=== PATIENT | male | born 1960 | race Caucasian/White ===

== ENCOUNTER 2018-02-08 10:15 | Inpatient (IN) | payer OTHER ==
--- NOTE | 2018-02-01 20:37 | HP ---
AMENDED REPORT NOW INCLUDES DESIGNATED COSIGNER PREOPERATIVE HISTORY AND PHYSICAL: DATE OF ADMISSION/SURGERY: 02/08/18 ATTENDING PHYSICIAN/SURGEON: Clarita Argueta MD.* (DICTATED BY VIANEY DELA CRUZ) PROCEDURE: Left total hip arthroplasty. HISTORY OF PRESENT ILLNESS: Mr. Loomis is a 57-year-old male with complaints of left hip pain. He has failed conservative management and has elected to proceed with left total hip arthroplasty, which is scheduled for 02/08/18. PAST MEDICAL HISTORY: Significant for gout in the right great toe and osteoarthritis. PAST SURGICAL HISTORY: L5-S1 laminectomy in 1991. CURRENT MEDICATIONS: 1. Tylenol 500 mg once to twice daily as needed. 2. Tramadol 50 mg q.6 hours p.r.n. pain. ALLERGIES: No known drug allergies. FAMILY HISTORY: Negative. 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 He occasionally smokes one cigar per month. REVIEW OF SYSTEMS: The 14 systems reviewed with the patient today. Positive for left hip pain and seasonal allergies, otherwise reports negative review of systems. PHYSICAL EXAMINATION GENERAL: The patient is pleasant and cooperative. Alert and oriented x3, in no acute distress. Pleasant mood and appropriate affect. VITAL SIGNS: Height 68 inches, weight 165. BP 118/77, respirations 16. BMI 25.1. HEENT: Pupils equal, round, reactive to light. NECK: Supple, nontender. LUNGS: Clear to auscultation bilaterally. HEART: Regular rate and rhythm. No murmurs. ABDOMEN: Nontender and soft. Normoactive bowel sounds x4 quadrants. MUSCULOSKELETAL: The left hip shows no open lesions or wounds. Flexion to 90 degrees with groin pain. No internal rotation. External rotation 20 degrees with groin pain. His calf is soft and nontender. His neurovascular status is intact distally with full sensation. Active dorsiflexion and plantarflexion of the left ankle. ASSESSMENT AND PLAN: Mr. Loomis is a 57-year-old male with end-stage osteoarthritis of the left hip. He has failed conservative management and elected to proceed with left total hip arthroplasty, which is scheduled for 03/[address] Argueta discussed the risks and benefits of the surgery today at the visit and all of his questions were answered. He will follow up with Dr. Argueta roughly 2 weeks after surgery. VIANEY DELA CRUZ [id number]/[facility] #: [id number] KAYLIE
[~2018-02-08 10:15] MED LIST: Acetaminophen TAB* 325 MG PO ONE; Buffered Lidocaine 0.9% SYRIN* 5 ML/SYR SYRINGE INTRADERM ONE; Famotidine IV* 10 MG/ML 2 ML (20 mg) IV ONE; Gabapentin CAP(*) 300 MG PO ONE; celeCOXIB CAP* 200 MG PO ONE
--- OUTSIDE RECORDS SUMMARY | 2018-02-08 10:19 | XMS REPORT | Continuity of Care Document ---
:1960 External Reference #:[id number] Author Name Randal Tilley M.D. Address [address] [place] [address] Care Team Providers Name Role Phone Randal Tilley M.D. Care Team Information Community Organization Director Unavailable Payers Type Date Identification Numbers Payment Provider Subscriber Policy Number: [id number] [employer] Wilfred Loomis SR Group [place] [facility] [place] [address] PayID: [place] [address] Advance Directives Description No Information Available Problems Date Description Provider Status Onset: 02/12/2017 Low back pain Randal Tilley M.D. Active Onset: 02/12/2017 Sciatica Randal Tilley M.D. Active Family History Date Family Member(s) Problem(s) Comments Father Prostate Cancer Father due to Natural Causes () Mother due to Natural Causes () Children 3 Siblings 1 Grandchildren 5 Social History Type Date Description Comments Sex Unknown Marital Status Legal Status: Pets None Work Status Full-Time Employment [employer]. ETOH Use Rarely consumes alcohol Recreational Drug Use Never Used Drugs Tobacco Use Start: Unknown Patient has never smoked Smoking Status Reviewed: 01/28/18 Patient has never smoked Exercise Type/Frequency Exercises daily Allergies, Adverse Reactions, Alerts Description No Known Drug Allergies Medications Medication Date Status Form Strength Qnty SIG Indications Ordering Provider Allopurinol Active Tablets 100mg 90tabs 1 by mouth M10.9 Randal 018 every day Radha thomas M.D. Celecoxib Active Capsules 200mg 30caps 1 by mouth M54.5 Randal 017 every day Radha thomas M.D. Tramadol HCL Active Tablets 50mg 60tabs take 1 Randal 000 tablet by Garcia mouth sJewel every 6 hours with a 500 mg tylenol if needed for pain Colchicine Hx Capsules 0.6mg 60caps take 2 M10.9 Randal 018 - now, 1 an Garcia hour later Jewel thomas 018 then 1 twice a day Indomethacin Hx Capsules 50mg 30caps 1 by mouth M10.9 Randal 018 - three Garcia times a Jewel thomas 018 day Medrol Hx TBPK 4mg 21unit use as M25.571 Randal 017 - s directed Garcia Jewel thomas 018 No Active Hx Unknown Medications 017 - 017 Immunizations Description No Information Available Vital Signs Date Vital Result Comment 01/28/2018 4:07pm Weight 165.00 lb BP Systolic 128 mmHg BP Diastolic 72 mmHg Height 67 inches 5'7" Heart Rate 60 /min O2 % BldC Oximetry 98 % room air Respiratory Rate 16 /min BMI (Body Mass Index) 25.8 kg/m2 12/25/2017 8:16am BP Systolic 138 mmHg BP Diastolic 90 mmHg 09/24/2017 3:59pm Weight 160.00 lb BP Systolic 118 mmHg BP Diastolic 82 mmHg 09/10/2017 4:24pm Weight 165.00 lb BP Systolic 122 mmHg BP Diastolic 78 mmHg 03/12/2017 4:57pm Weight 171.50 lb BP Systolic 94 mmHg BP Diastolic 74 mmHg Height 68.25 inches 5'8.25" Heart Rate 68 /min Respiratory Rate 16 /min BMI (Body Mass Index) 25.9 kg/m2 02/12/2017 10:07am Weight 178.00 lb BP Systolic 118 mmHg BP Diastolic 90 mmHg 01/13/2017 8:55am Weight 176.00 lb BP Systolic 132 mmHg BP Diastolic 76 mmHg Height 67 inches 5'7" Heart Rate 60 /min Body Temperature 97.9 F Respiratory Rate 14 /min BMI (Body Mass Index) 27.6 kg/m2 Results Test Date Facility Test Result H/L Range Note Laboratory test 01/04/2018 [facility] Uric Acid 7.5 mg/dL High 3.5- 7.2 1 finding [phone] Sedimentation Rate 3 mm/hr 0-20 2 CBS W/Automated Diff 01/04/2018 [facility] White Blood 5.4 K/uL 3.4-10.5 [phone] Count Red Blood Count 4.67 M/uL 4.20-5.80 Hemoglobin 14.0 gm/dL 12.8-17.0 Hematocrit 41.4 % 38.0-48.0 Mean Cell Volume 88.7 fl 80.0-96.0 Mean Corpuscular HGB 30.0 pg 27.0-33.0 Mean Corpuscular HGB Conc 33.8 g/dL 31.7-36.0 Platelet Count 250 K/uL 155-360 Red Cell Distri Width SD 44.8 fl 36-51 Red Cell Distri Width %CV 14.1 % 11.6-15.8 Mean Platelet Volume 9.9 fL 6.6-10.6 Neut% 58.7 % 33.0-73.0 Lymph % 29.0 % 20.0-42.0 Benson % 11.4 % High 0.0-10.0 Eo% 0.7 % 0.0-6.6 Bas% 0.2 % 0.0-1.1 Neut# 3.18 K/uL 1.8-7.0 Lymph # 1.57 K/uL 1.0-4.0 Benson # 0.62 K/uL 0.0-0.8 Eos # 0.04 K/uL 0.0-0.5 Baso # 0.01 K/uL 0.0-0.1 Laboratory test 05/18/2017 [facility] Uric Acid 7.3 mg/dL High 3.5- 7.2 3 finding [phone] Sedimentation Rate 4 mm/hr 0-20 4 CBS W/Automated Diff 05/18/2017 [facility] White Blood 5.9 K/uL 3.4-10.5 [phone] Count Red Blood Count 4.61 M/uL 4.20-5.80 Hemoglobin 14.2 gm/dL 12.8-17.0 Hematocrit 41.3 % 38.0-48.0 Mean Cell Volume 89.6 fl 80.0-96.0 Mean Corpuscular HGB 30.8 pg 27.0-33.0 Mean Corpuscular HGB Conc 34.4 g/dL 31.7-36.0 Platelet Count 275 K/uL 155-360 Red Cell Distri Width SD 43.4 fl 36-51 Red Cell Distri Width %CV 13.5 % 11.6-15.8 Mean Platelet Volume 9.5 fL 6.6-10.6 Neut% 55.2 % 33.0-73.0 Lymph % 34.6 % 20.0-42.0 Benson % 9.4 % 0.0-10.0 Eo% 0.5 % 0.0-6.6 Bas% 0.3 % 0.0-1.1 Neut# 3.24 K/uL 1.8-7.0 Lymph # 2.03 K/uL 1.0-4.0 Benson # 0.55 K/uL 0.0-0.8 Eos # 0.03 K/uL 0.0-0.5 Baso # 0.02 K/uL 0.0-0.1 Laboratory test 05/18/2017 [facility] Prostate Specific 1.36 < 4.0 5 finding [phone] Antigen ng/mL Glycohemoglobin A1c 05/18/2017 [facility] Glycohemoglobin 5.9 % 4.2-6. 6 [phone] (A1c) 3 eAG 123 mg/dL LDL Cholesterol Profile 05/18/2017 [facility] Cholesterol 159 mg/dL <200 7 [phone] Triglycerides 61 mg/dL <150 8 HDL Cholesterol 64 mg/dL >40 9 LDL-Cholesterol 83 mg/dL < 100 10 Basic Metabolic Panel 05/18/2017 [facility] Glucose 88 mg/dL 74- 106 [phone] BUN 21 mg/dL High 7-18 Creatinine 1.1 mg/dL 0.6-1.3 Glom Filtration Rate, Estimate >60 mL/min >60 If >60 mL/min >60 11 BUN/Creat 19.0 ratio Sodium 138 mmol/L 136-145 Potassium 4.5 mmol/L 3.5-5.1 Chloride 104 mmol/L 98-107 Carbon Dioxide 30 mmol/L 21-32 Anion Gap 4 mEq/L Low 8-16 Calcium 9.2 mg/dL 8.5-10.1 1 M10.9 2 Method: Sediplast Modified Westergren 3 M25.571, Z12.5, Z00.01 4 Method: Sediplast Modified Westergren 5 THIS ASSAY IS NOT INTENDED A CANCER SCREENING TEST The concentration of PSA in a given specimen, determined with assays from different manufacturers, can vary due to differences in assay methods and reagent specificity. Values obtained from different assay methods cannot be used interchangeably. Method: Aito BVta Chemiluminescent immunoassay. 6 Elevated levels of HbA1c suggest the need for more aggressive treatment of glycemia. The [place] Diabetes Association recommends that a primary goal of therapy should be a HbA1c of <7% and that physicians should re-evaluate the treatment regimen in patients with HbA1c values consistently >8%. 7 Reference Guidelines*: Desirable: ........... < 200 mg/dL Borderline High: ..... 200-239 mg/dL High: ................ >=240 mg/dL * The National Cholesterol Education Program (NCEP) 8 Reference Guidelines*: Normal: ............. < 150 mg/dL Borderline High: .... 150-199 mg/dL High: ............... 200-499 mg/dL Very High: .......... > 500 mg/dL * Source: National Cholesterol Education Program (NCEP) 9 Reference Guidelines*: Low HDL: ..... < 40 mg/dL Normal: ..... 40-60 mg/dL Desirable: ... > 60 mg/dL *The National Cholesterol Education Program(NCEP) 10 Reference Guidelines*: Optimal:........... <100 mg/dL Near Optimal....... 100-129 mg/dL Borderline High.... 130-159 mg/dL High............... 160-189 mg/dL Very High.......... >=190 mg/dL * Source: National Cholesterol Education Program (NCEP) 11 Note: Persistent reduction for 3 months or more in an eGFR <60 mL/min/1.73 m2 defines CKD. Patients with eGFR values >/=60 mL/min/1.73 m2 may also have CKD if evidence of persistent proteinuria is present. The original MDRD equation for estimated GFR is not valid for patients less than 18 years of age. Additional information may be found at www.kdoqi.org. Procedures Date Code Description Status 01/28/2018 99621 EKG Completed Encounters Type Date Location Provider Dx Diagnosis Office Visit 01/28/2018 Main Office Randal Tilley M25.552 Pain in left hip 3:45p Jewel M10.9 Gout, unspecified M54.5 Low back pain M25.562 Pain in left knee Z01.818 Encounter for other preprocedural examination Office Visit 12/25/2017 8:00a Main Office Randal M10.9 Gout, unspecified Jewel Tilley Office Visit 09/24/2017 3:45p Main Office Randal M25.512 Pain in left Tilley, M.DBony shoulder M25.552 Pain in left hip Office Visit 09/10/2017 4:30p Main Office Randal Tilley M25.512 Pain in left M.D. shoulder Office Visit 03/12/2017 4:30p Main Office Randal Tilley Z00.01 Encounter for M.D. general adult medical exam w abnormal findings Z12.5 Encounter for screening for malignant neoplasm of prostate Z12.12 Encounter for screening for malignant neoplasm of rectum M54.5 Low back pain M54.32 Sciatica, left side M25.571 Pain in right ankle and joints of right foot Office Visit 01/13/2017 9:00a Main Office Randal Tilley M54.5 Low back pain M.DBony M54.32 Sciatica, left side Plan of Treatment Future Appointment(s):03/15/2018 3:00 pm - Randal Tilley M.D. at Main Xbrjun0101/28/2018 - Randal Tilley M.D.M25.552 Pain in left hipM10.9 Gout, unspecifiedNew Medication:Allopurinol 100 mg - 1 by mouth every dayNew Labs: Uric Acid Ser/Plas Mass/Vol, Ordered: 11/01/18M54.5 Low back painM25.562 Pain in left kneeZ01.818 Encounter for other preprocedural examinationNew Labs:PT And PTT, Ordered: 01/28/18CBC No Diff, Ordered: 01/28/18CMP, Ordered: Ua And Culture, Ordered: 01/28/18
--- OUTSIDE RECORDS SUMMARY | 2018-02-08 10:19 | XMS REPORT | Continuity of Care Document ---
:1960 External Reference #:[id number] Author Name Randal Tilley M.D. Address [address] [place] [address] Care Team Providers Name Role Phone Randal Tilley M.D. 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 ETOH Use Rarely consumes alcohol Recreational Drug Use Never Used Drugs Tobacco Use Start: Unknown Patient has never smoked Smoking Status Reviewed: 01/13/18 Patient has never smoked Exercise Type/Frequency Exercises daily Allergies, Adverse Reactions, Alerts Description No Known Drug Allergies Medications Medication Date Status Form Strength Qnty SIG Indications Ordering Provider Colchicine Active Capsules 0.6mg 60caps take 2 M10.9 Randal 018 now, 1 an Garcia hour later s, M.D. then 1 twice a day Indomethacin Active Capsules 50mg 30caps 1 by mouth M10.9 Randal 018 three Garcia times a s, M.D. day Celecoxib Active Capsules 200mg 30caps 1 by mouth M54.5 Randal 017 every day Radha thomas M.D. Tramadol HCL Active Tablets 50mg take 1 Unknown 000 tablet by mouth every 6 hours if needed for pain maximum daily dose of 4 Medrol Hx TBPK 4mg 21unit use as M25.571 Randal 017 - s directed Radha Jewel thomas 018 No Active Hx Unknown Medications 017 - 017 Immunizations Description No Information Available Vital Signs Date Vital Result Comment 12/25/2017 8:16am BP Systolic 138 mmHg BP [...] Result H/L Range Note Laboratory test 01/04/2018 [facility] Uric Acid 7.5 mg/dL High 3.5- 7.2 1 finding [phone] Sedimentation Rate 3 mm/hr 0-20 2 CBS W/Automated Diff 01/04/2018 [facility] White Blood 5.4 K/uL 3.4-10.5 [phone] Count Red Blood Count 4.67 M/uL 4.20-5.80 [...] % 33.0-73.0 Lymph % 29.0 % 20.0-42.0 [place] % 11.4 % High 0.0-10.0 Eo% 0.7 % 0.0-6.6 Bas% 0.2 % 0.0-1.1 Neut# 3.18 K/uL 1.8-7.0 Lymph # 1.57 K/uL 1.0-4.0 [place] # 0.62 K/uL 0.0-0.8 Eos # 0.04 K/uL 0.0-0.5 Baso # 0.01 K/uL 0.0-0.1 Laboratory test 05/18/2017 [facility] Uric Acid 7.3 mg/dL High 3.5- 7.2 3 finding [phone] Sedimentation Rate 4 mm/hr 0-20 4 CBS W/Automated Diff 05/18/2017 [facility] White Blood 5.9 K/uL 3.4-10.5 [phone] Count Red Blood Count 4.61 M/uL 4.20-5.80 [...] % 33.0-73.0 Lymph % 34.6 % 20.0-42.0 [place] % 9.4 % 0.0-10.0 Eo% 0.5 % 0.0-6.6 Bas% 0.3 % 0.0-1.1 Neut# 3.24 K/uL 1.8-7.0 Lymph # 2.03 K/uL 1.0-4.0 [place] # 0.55 K/uL 0.0-0.8 Eos # 0.03 K/uL 0.0-0.5 Baso # 0.02 K/uL 0.0-0.1 Laboratory test 05/18/2017 [facility] Prostate Specific 1.36 < 4.0 5 finding [phone] Antigen ng/mL Glycohemoglobin A1c 05/18/2017 [facility] Glycohemoglobin 5.9 % 4.2-6. 6 [phone] (A1c) 3 eAG 123 mg/dL LDL Cholesterol Profile 05/18/2017 [facility] Cholesterol 159 mg/dL <200 7 [phone] Triglycerides 61 mg/dL <150 8 HDL Cholesterol 64 mg/dL >40 9 LDL-Cholesterol 83 mg/dL < 100 10 Basic Metabolic Panel 05/18/2017 [facility] Glucose 88 mg/dL 74- 106 [phone] BUN 21 mg/dL High 7-18 Creatinine 1.1 [...] assay methods cannot be used interchangeably. Method: Bazaarvoiceta Chemiluminescent immunoassay. 6 Elevated levels of HbA1c suggest the need for more aggressive treatment of glycemia. The [place] Diabetes Association recommends that a primary goal [...] information may be found at www.kdoqi.org. Procedures Description No Information Available Encounters Type Date Location Provider Dx Diagnosis Office Visit 12/25/2017 Main Office Randal Lobo.9 Gout, unspecified 8:00a Jewel Tilley Office Visit 09/24/2017 Main Office Randal M25.512 Pain in left 3:45p Jewel Tilley shoulder M25.552 Pain in left hip Office Visit 09/10/2017 4:30p Main Office Randal Tilley M25.512 Pain in left M.DBony shoulder Office Visit 03/12/2017 4:30p Main Office Randal Tilley Z00.01 Encounter for M.DBony general adult medical exam w abnormal findings Z12.5 Encounter for screening for malignant neoplasm of prostate Z12.12 Encounter for screening for malignant neoplasm of rectum M54.5 Low back pain M54.32 Sciatica, left side M25.571 Pain in right ankle and joints of right foot Office Visit 01/13/2017 9:00a Main Office Randal Tilley M54.5 Low back pain KatiuskaDBony M54.32 Sciatica, left side Plan of Treatment Future Appointment(s):01/28/2018 3:45 pm - Randal Tilley M.D. at Main Hqygtj9503/15/2018 3:00 pm - Randal Tilley M.D. at Main Jhzjtk3112/25/2017 - Randal Tilley M.D.M10.9 Gout, unspecifiedNew Medication:Colchicine 0.6 mg - take 2 now, 1 an hour later then 1 twice a dayIndomethacin 50 mg - 1 by mouth three times a dayAllRecommendations:no celebrex while taking indocin take indocin 3 times a day until the pain subsides take colchicine daily ok to use Ultram
--- OUTSIDE RECORDS SUMMARY | 2018-02-08 10:19 | XMS REPORT ---
:1960 External Reference #:[id number] Author Organization [employer] Address [address] [place] [id number] Phone [phone] Care Team Providers Name Role Phone Randal Tilley MD Primary Care Physician Unavailable Payers Type Date Identification Numbers Payment Provider Subscriber Commercial Policy Number: [id number] [employer] Wilfred Loomis [employer] PayID: [id number] [address] [place] [address] Problems Date Description Provider Status Onset: 12/18/2017 Localized, primary osteoarthritis of the Clarita Jewel Argueta Active pelvic region and thigh Social History Type Date Description Comments Lives With 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 ETOH Use Occasionally consumes alcohol Smoking Patient is a current smoker, smokes some days Exercise Type/Frequency Exercises regularly Allergies, Adverse Reactions, Alerts Date Description Reaction Status Severity Comments 12/18/2017 NKDA active Medications Medication Date Status Form Strength Qnty SIG Indications Ordering Provider Tramadol HCL 12/19/19 Active Tablets 50mg 60tabs 1 tablet M25.552 Clarita 18 by mouth Jewel Argueta every 6 hours as needed pain Tylenol Active Capsules 500mg Unknown 00 Celecoxib Hx Capsules 200mg Unknown - 02/01/20 18 Vital Signs Date Vital Result Comment 02/01/2018 Height 68 inches 5'8" Weight 166.00 lb Heart Rate 60 /min BP Systolic 134 mmHg BP Diastolic 84 mmHg BMI (Body Mass Index) 25.2 kg/m2 12/18/2017 Height 68 inches 5'8" Weight 165.00 lb BP Systolic 118 mmHg BP Diastolic 77 mmHg Respiratory Rate 16 /min Pain Level 7 BMI (Body Mass Index) 25.1 kg/m2 Results Description No Information Procedures Description No Information Encounters Type Date Location Provider CPT E/M Dx Office Visit 12/18/2017 [facility] Clarita Argueta M.D. [address] M25.552 10:[facility] [place] M16.12 Plan of Care Future Appointment(s):02/08/2018 1:30 pm - VIANEY [facility] at [facility]02/08/2018 1:30 pm - Clarita [facility]gu[facility]2018 - Clarita Argueta M.D.M16.12 Unilateral primary osteoarthritis, left hipFollow up:Follow up: to OR: 10-14 days post opM25.552 Pain in left hipNew Xrays:Hip Left 2 Views And Pelvis [id number] - [id number] Left 2 Views And Pelvis [id number] - [id number]
[2018-02-08] MEDS ORDERED: Famotidine IV* 10 MG/ML 2 ML (20 mg) ONE (11:17)
[2018-02-08] MEDS ORDERED: Midazolam* 1 MG/ML 5 ML VIAL (5 MG) ONE (11:17)
[2018-02-08] MEDS ORDERED: Propofol* 10 MG/ML 20 ML BTL IV PUSH ONE (11:17)
[2018-02-08] MEDS ORDERED: fentaNYL* 50 MCG/ML 5 ML VIAL (250 MCG VIAL) ONE (11:17)
[2018-02-08] MEDS ORDERED: Gabapentin CAP(*) 300 MG ONE (11:17)
[2018-02-08] MEDS ORDERED: Ondansetron INJ* 2 MG/ML VIAL ONE (11:17)
[2018-02-08] MEDS ORDERED: Lidocaine 2% PF * 5 ML VIAL ONE (11:17)
[2018-02-08] MEDS ORDERED: KETAMINE HCL* 50 MG/ML 10 ML VIAL ONE (11:17)
[2018-02-08] MEDS ORDERED: Dexamethasone IV* 4 MG/ML 1 ML (4 MG) ONE (11:17)
[2018-02-08] MEDS ORDERED: celeCOXIB CAP* 100 MG ONE (11:18)
[2018-02-08] MEDS ORDERED: Acetaminophen TAB* 325 MG ONE (11:18)
[2018-02-08] MEDS ORDERED: ceFAZolin 2 GM in NS PREMIX(*) 2 GM/100 ML BAG IVPB ONE (11:52)
[2018-02-08] MEDS ORDERED: Cisatracurium* 2 MG/ML MDV 5 ML ONE (12:41)
[2018-02-08] MEDS ORDERED: Naloxone* 0.4 MG/ML 1 ML VIAL IV PRN (14:29)
[2018-02-08] MEDS ORDERED: Ondansetron INJ* 2 MG/ML VIAL IV PRN ×2 (14:29→16:01)
[2018-02-08] MEDS ORDERED: Bupivacaine 0.5% SDV PF* 30ML VIAL ONE (15:15)
[2018-02-08] MEDS ORDERED: HYDROmorphone INJ1* 1 MG/ML SYRINGE ONE ×2 (15:15→16:23)
[2018-02-08] MEDS ORDERED: Cyclobenzaprine TAB* 10 MG PO PRN (16:01)
[2018-02-08] MEDS ORDERED: diPHENhydraMINE PO* 25 MG PO PRN (16:01)
[2018-02-08] MEDS ORDERED: oxyCODONE TAB* 5 MG TAB PO PRN (16:01)
[2018-02-08] MEDS ORDERED: Bisacodyl SUPP* 10 MG SUPP PR PRN (16:01)
[2018-02-08] MEDS ORDERED: Magnesium Hydroxide LIQ* 30 ML UDC PO PRN (16:01)
[2018-02-08] MEDS ORDERED: traMADol TAB* 50 MG PO PRN (16:01)
[2018-02-08] MEDS ORDERED: Morphine VIAL* 4 MG/ML VIAL (1 ml vial) IV PRN (16:01)
[2018-02-08] MEDS ORDERED: oxyCODONE/Acetamin 5/325 MG* TAB PO PRN (16:01)
[2018-02-08] MEDS ORDERED: Polyethylene Glycol 3350* 17 GM PACKET PO PRN (16:01)
[2018-02-08] MEDS ORDERED: diPHENhydraMINE IV* 50 MG/ML 1 ml VIAL (BENADRYL) IV PRN (16:01)
[2018-02-08] MEDS ORDERED: fentaNYL* 50 MCG/ML 2 ML VIAL (100 MCG VIAL) ONE (16:23)
[2018-02-08] MEDS: fentaNYL* 50 MCG/ML 2 ML VIAL (100 MCG VIAL) IV PRN ×2 (16:25→17:20)
[2018-02-08] MEDS: HYDROmorphone INJ1* 1 MG/ML SYRINGE IV PRN ×2 (16:33→18:52)
[2018-02-08] MEDS ORDERED: oxyCODONE/Acetamin 5/325 MG* TAB ONE (17:21)
[2018-02-08] MEDS: oxyCODONE/Acetamin 5/325 MG* TAB PO PRN (17:22)
[2018-02-08] MEDS: Acetaminophen TAB* 325 MG PO SCH (20:05)
[2018-02-08] MEDS: ceFAZolin 1 GM in Dextrose (*) 1 GM/50 ML BAG IVPB SCH (23:15)
[2018-02-08] MEDS ORDERED: Warfarin TAB(*) 6 MG PO ONE (23:15)
[2018-02-08] MEDS: Docusate CAP* 100 MG PO SCH (23:17)
[2018-02-08] MEDS: Magnesium Hydroxide LIQ* 30 ML UDC PO SCH (23:19)
[2018-02-09] MEDS: Acetaminophen TAB* 325 MG PO SCH ×2 (00:29→09:23)
[2018-02-09] MEDS: ceFAZolin 1 GM in Dextrose (*) 1 GM/50 ML BAG IVPB SCH ×2 (05:38→14:19)
[2018-02-09 06:13] LABS: Hematocrit 37 % (42-52); Hemoglobin 12.3 g/dl (14.0-18.0); Mean Platelet Volume 7.5 fL (7.4-10.4); Platelet Count 251 10^3/ul (150-450)
[2018-02-09] MEDS: oxyCODONE/Acetamin 5/325 MG* TAB PO PRN ×2 (06:19→15:10)
[2018-02-09 06:22] LABS: INR 0.94 (0.77-1.02)
[2018-02-09 06:28] LABS: EGFR Non-African American 96.5 (>60)
[2018-02-09] MEDS ORDERED: Enoxaparin(*) 30 MG/0.3 ML SYR SUBCUT SCH (09:00)
[2018-02-09] MEDS: Docusate CAP* 100 MG PO SCH (09:23)
[2018-02-09] MEDS: Magnesium Hydroxide LIQ* 30 ML UDC PO SCH (09:42)
--- NOTE | 2018-02-09 11:31 | OP ---
OPERATIVE NOTE: DATE OF OPERATION: 02/08/18 DATE OF : 58 ATTENDING SURGEON: Clarita Argueta MD. STONEMASON HELPER: VIANEY Roblero. Ms. Samson did help throughout the procedure with preparation of the leg, wound retraction, manipulat ion of the hip, and wound closure. ANESTHESIOLOGIST: Dr. Thorpe ANESTHESIA: General. PRE-OP DIAGNOSIS: Severe endstage degenerative osteoarthritis of the left hip joint. POST-OP DIAGNOSIS: Severe endstage degenerative osteoarthritis of the left hip joint. OPERATIVE PROCEDURE: Left total hip arthroplasty. COMPLICATIONS: None. ESTIMATED BLOOD LOSS: 200 cc. SPECIMENS: Femoral head and acetabular reaming sent to Pathology. HARDWARE USED: This is uncemented [employer] total hip arthroplasty hardware. For the cup, a Tritanium cluster hole shell 56E, a single 20-mm screw. For the linear a Trident X3 10-degree liner 36E. For the stem, an Accolade II size 5 with a 127- degree neck. For the head a Biolox delta ceramic V40 fe moral head 36 -2.5. BRIEF HISTORY/INDICATION: Mr. Loomis is a 57-year-old gentleman with years of increasingly severe le ft hip pain. He failed conservative treatment with the antiinflammatories, physical therapy, and int raarticular injections. Radiographs showed endstage arthritis. Due to continued pain and decreased quality of life, he elected to undergo left total hip arthroplasty. Informed consent was obtained fr om the patient. He understood the risks of surgery included, but were not limited to, bleeding, infe ction, damage to nearby structures, continued pain, need for further surgery, intraoperative fracture , nerve palsy, hardware failure or loosening, dislocation, leg length discrepancy, stroke, heart jenni ck, blood clot, and . He wished to proceed. INTRAOPERATIVE FINDINGS: Intraoperatively, the patient was noted to have endstage arthritis with ext ensive osteophyte formation and complete loss of cartilage along the femoral head and acetabulum. DESCRIPTION OF PROCEDURE: Mr. Loomis was identified in the preanesthesia unit. His left lower extrem ity was marked as the correct operative side. Informed consent was signed and placed in the chart. The patient was taken to the operating room and placed under general anesthesia. A Zamarripa catheter wa s placed. The patient was placed in the right lateral decubitus position on the PEG board. All bony prominences were well padded. Left lower extremity was prepped and draped in the usual sterile [facility] ion. Preop time-out was made to correctly identify the patient's side and site. Appropriate periope rative antibiotics were given within 1 hour of incision. A 10-cm posterior hip incision was made with a 10 blade and carried down to the lateral fascial layer . Lateral fascial layer was incised in line with the skin incision. Charnley retractor was placed. The piriformis and the posterior aspect of the hip joint was well visualized. The piriformis and co njoint tendons were elevated off the posterolateral femur using electrocautery and tagged with #5 Eth ibond. Electrocautery was then used to make a posterolateral capsular flap and this was also tagged with #5 Ethibond. The hip was carefully dislocated. Lesser troch to the center of the femoral head measured 58 mm. The oscillating saw was used to make the appropriate femoral neck cut. The femoral head was removed. The femur was carefully retracted anteriorly. After appropriate placement of retractors, the acetabu lum was well visualized. Long-handled knife was used to sharply remove any remaining labrum from the acetabular rim. The acetabulum sequentially reamed up to a size 55. The 55 reamer had bleeding sub chondral bone bed and good fit. A 55 trial was placed and had excellent fit and stability. Final imp lant chosen was a Tritanium cluster hole shell 56E. This was impacted into the acetabulum without di fficulty. The cup was stable with appropriate anteversion and abduction angle. A single 20 mm screw was placed in the superior posterior quadrant for extra stability. Liner chosen was a Trident X3 10 -degree polyethylene liner. This was impacted into the acetabulum. Stability of the liner was check ed and rechecked and noted to be stable. Next, attention was turned to preparation of the femur canal. A canal finder was used to enter the f emoral canal. This femoral canal was sequentially broached up to a size 5. Size 5 broach had excell ent stability with appropriate anteversion. A 127 trial with a 36 +0 head trial was placed. Lesser t roch to the center of the femoral head measured 62 mm, therefore, a -2.5 head was chosen. Lesser tro ch to the center of the femoral head measured 59 mm. The hip was reduced and taken through a range o f motion. The hip was stable in all positions. There was good soft tissue tension and appropriate l eg lengths. The hip was carefully dislocated. All trials were removed. Final implant chosen was an Accolade II size 5 with a 127 degree neck. This was impacted into the femoral canal without difficulty. The yovani m was stable with appropriate anteversion. A Biolox delta ceramic V40 femoral head 36 -2.5 was chose n as the final implant. This was impacted on to the femoral neck. Final lesser troch to the center of the femoral head measurement was 58 mm. The hip was reduced and taken through a range of motion. The hip was stable in all positions. There was good soft tissue tension and appropriate leg lengths . The wound was copiously irrigated with sterile saline. Previously tagged capsule and tendons were reapproximated to the posterolateral femur through 2 trochanteric drill holes. The wound was copiou sly irrigated with sterile saline once again. The lateral fascial layer was closed using interrupted #1 Vicryls. The rest of the incision was closed in a layered fashion using 0 and 2-0 Vicryls. Skin was closed using running 3-0 Monocryl and Dermabond. Sterile Adaptic, 4x4s, and paper tape were use d to cover the incision. The patient's anesthesia was reversed without difficulty. He was taken to the PACU in stable conditi on. Intended weightbearing will be weightbearing as tolerated. Intended DVT prophylaxis will be Coum roni with a Lovenox bridge. [id number]/[facility] #: [id number]
--- NOTE | 2018-02-09 14:58 | PN ---
Progress Note - Progress Note Date of Service: 02/09/18 SOAP: Subjective: []Patient seen and examined at bedside POD 1 sp left total hip arthroplasty. He feels well and desires DC home. denies CP, SOB, dizziness, nausea, leg numbness or history of DVT/PE. Objective: []General: well appearing, NAD LLE: Left hip dressing CDI. thigh is soft. DF/PF intact. Sensation intact and cap refill less than two seconds distally. DP2+ distally. Calves supple and nontender without erythema, edema or palpable cords Assessment: []POD 1 sp left total hip arthroplasty Plan: []WBAT PT/OT - met goals with PT Hip precautions Patient has not reached a therapeutic INR at time of discharge. He has no history of DVT or PE, cancer, dm2. He will be discharged on Aspirin 325 mg BID x 30 days DC to home Will change dressing before DC Vital Signs Temp 97.7 F 02/09/18 07:23 Pulse 73 02/09/18 07:23 Resp 18 02/09/18 12:38 BP 131/74 02/09/18 07:23 Pulse Ox 98 02/09/18 07:23 Intake & Output 02/08/18 02/09/18 02/09/18 18:59 06:59 18:59 Intake Total 2100 2723 320 Output Total 300 725 500 Balance 1800 1997 -180 Weight 168 lb Intake: IV Fluids 2100 1033 ABX - CEFAZOLIN 53 LR 980 NS 100ML, Cefazolin 2G 100 lr 2000 Oral 1690 320 Output: Urine 500 Zamarripa 100 725 Estimated Blood Loss 200 Other: # Bowel Movements 0 Laboratory Last Values Hgb 12.3 g/dl (14.0-18.0) L 02/09/18 05:45 Hct 37 % (42-52) L 02/09/18 05:45 Plt Count 251 10^3/ul (150-450) 02/09/18 05:45 MPV 7.5 fL (7.4-10.4) 02/09/18 05:45 INR (Anticoag Therapy) 0.94 (0.77-1.02) 02/09/18 05:45 Sodium 134 mmol/L (135-145) L 02/09/18 05:45 Potassium 4.2 mmol/L (3.5-5.0) 02/09/18 05:45 Chloride 100 mmol/L (101-111) L 02/09/18 05:45 Carbon Dioxide 26 mmol/L (22-32) 02/09/18 05:45 Anion Gap 8 mmol/L (2-11) 02/09/18 05:45 BUN 16 mg/dL (6-24) 02/09/18 05:45 Creatinine 0.82 mg/dL (0.67-1.17) 02/09/18 05:45 Est GFR ( Amer) 116.8 (>60) 02/09/18 05:45 Est GFR (Non-Af Amer) 96.5 (>60) 02/09/18 05:45 BUN/Creatinine Ratio 19.5 (8-20) 02/09/18 05:45 Glucose 138 mg/dL (70-100) H 02/09/18 05:45 Calcium 8.9 mg/dL (8.6-10.3) 02/09/18 05:45
[2018-02-09 17:46] VITALS: BP 138/72
--- NOTE | 2018-02-10 14:48 | DS ---
DISCHARGE SUMMARY: DATE OF ADMISSION: 02/08/18 DATE OF DISCHARGE: ATTENDING ORTHOPEDIC PROVIDER: Dr. Clarita Argueta. DATE OF OPERATION: 02/08/18 PREOPERATIVE DIAGNOSIS: Severe end-stage degenerative osteoarthritis of the left hip joint. OPERATIVE PROCEDURE: Left total hip arthroplasty. HISTORY: Mr. Loomis is a 57-year-old with years of increasingly severe left hip pain. He failed con servative treatment with antiinflammatories, physical therapy, and intraarticular injection and he el ected to undergo left total hip arthroplasty. HOSPITAL COURSE: The patient was admitted to [facility] on 02/08/18. He underwent a left total hip arthroplasty without complication. On postop day 1, he was seen and examined at the [facility]. Left hip dressing was changed. Incision clean, dry, and intact without any erythema or discharge . Thigh was soft. Dorsiflexion and plantar flexion intact. Sensation intact and cap refill less speedy n 2 seconds distally. DP pulse 2+. Vital Signs: Temperature 97.7, pulse 73, respiratory rate 18, b lood pressure 131/74, pulse ox 98. Hemoglobin 12.3, hematocrit 37. INR 0.94. Due to patient's lack of reaching therapeutic INR, he will be sent home on aspirin 325 b.i.d. He met his goals with physi blaze therapy and was deemed safe for discharge home. DISCHARGE MEDICATIONS: Include: 1. Acetaminophen 975 mg p.o. q.8 hours p.r.n. 2. Aspirin 325 p.o. b.i.d. for 30 days. 3. Docusate 100 mg p.o. b.i.d. p.r.n. constipation. 4. Percocet 5/325 one to two tablets every 4 to 6 hours as needed for pain, max daily dose of 10. DISCHARGE PLAN: The patient will be weightbearing as tolerated. He will continue hip precautions. He will follow up with Dr. Argueta in 10 to 14 days, sooner with any concerns. DVT prophylaxis is aspi rin 325 every 12 hours for 30 days. He will continue physical therapy and occupational therapy. Torsten n control Percocet 5/325 one to two tabs by mouth every 4 to 6 hours as needed for pain, max of 10 ta bs per day. DISPOSITION: He is discharged to home. JOHNNY [place], [place] [id number]/[facility] #: [id number]
== END 2018-02-09 18:25 | disposition home or self-care (01) | DRG 301 ==
LOC: AA 10:15 → SSU 19:28
PROVIDERS: ADMIT Orthopaedic Surgery Adult Reconstructive Orthopaedic Surgery; ATTEND Orthopaedic Surgery Adult Reconstructive Orthopaedic Surgery
PROC: 0SRB04A Replacement of Left Hip Joint with Ceramic on Polyethylene Synthetic Substitute, Uncemented, Open Approach (ICD-10-PCS; principal; 2018-02-08 13:00)
DX: M16.12 Unilateral primary osteoarthritis, left hip (principal); M10.9 Gout, unspecified; Z79.1 Long term (current) use of non-steroidal anti-inflammatories (NSAID); Z79.899 Other long term (current) drug therapy; Z72.0 Tobacco use
CPT/HCPCS: 36415; 72170; 80048; 85014; 85018; 85049; 85610; A9270-GY; C1713; C1776; J0690; J1100; J1170; J1650; J2250; J2405; J2704; J3010

== ENCOUNTER 2018-08-22 19:37 | Emergency (ER) | payer BC, OTHER ==
[2018-08-22 19:54] VITALS: BP 139/80
--- NOTE | 2018-08-22 20:07 | UC ---
Lower Extremity/Ankle HPI - HPI Summary HPI Summary: Patient is complaining of pain on the underside of the right small toe has been painful for a year, has full movement of the toe and only hurts with pressure. - History of Current Complaint Chief Complaint: UCLowerExtremity Stated Complaint: RIGHT FOOT PAIN Time Seen by Provider: 08/22/18 19:49 Hx Obtained From: Patient Onset/Duration: Gradual Onset, Still Present Severity Initially: Moderate Severity Currently: Moderate Pain Intensity: 4 Aggravating Factor(s): Standing, Ambulation Alleviating Factor(s): Rest Able to Bear Weight: Yes - Allergies/Home Medications Allergies/Adverse Reactions: Allergies Allergy/AdvReac Type Severity Reaction Status Date / Time No Known Allergies Allergy Verified 08/22/18 19:54 Home Medications: Home Medications NK [No Home Medications Reported] 08/22/18 [History Confirmed 08/22/18] PMH/Surg Hx/FS Hx/Imm Hx Previously Healthy: Yes - Surgical History Surgical History: Yes Surgery Procedure, Year, and Place: RT KNEE ARTHROSCOPY, L5-S1 LAMINECTOMY 1991 , left hip replacement 01/2018 - Family History Known Family History: Positive: Hypertension - Social History Alcohol Use: None Substance Use Type: None Smoking Status (MU): Former Smoker Amount Used/How Often: CIGAR ONCE A WEEK IN THE SUMMER Have You Smoked in the Last Year: No When Did the Patient Quit Smoking/Using Tobacco: 11/14 Household Exposure Type: Pipe - Immunization History Most Recent Influenza Vaccination: NONE Most Recent Pneumonia Vaccination: NONE Review of Systems All Other Systems Reviewed And Are Negative: Yes Skin: Positive: Other - callus Musculoskeletal: Positive: Arthralgia Is Patient Immunocompromised?: No Physical Exam Triage Information Reviewed: Yes Appearance: Well-Appearing, Well-Nourished, Pain Distress Vital Signs: Initial Vital Signs Temp 97.7 F 08/22/18 19:44 Pulse 64 08/22/18 19:44 Resp 16 08/22/18 19:44 BP 139/80 08/22/18 19:44 Pulse Ox 98 08/22/18 19:44 Vital Signs Reviewed: Yes Eye Exam: Normal ENT Exam: Normal Dental Exam: Normal Neck exam: Normal Respiratory Exam: Normal Cardiovascular Exam: Normal Abdominal Exam: Normal Bowel Sounds: Positive: Present Musculoskeletal: Positive: Strength Intact, ROM Intact, No Edema Neurological Exam: Normal Psychological Exam: Normal Skin: Positive: Other - thick callus/corn under the distal end of the 5th met Lower Extremity Course/Dx - Course Course Of Treatment: hx obtained, exam performed, meds reviewed, educated on callus treatment and OTC remedies - Differential Dx/Diagnosis Provider Diagnosis: Crystal of foot Discharge - Sign-Out/Discharge Documenting (check all that apply): Patient Departure All imaging exams completed and their final reports reviewed: No Studies - Discharge Plan Condition: Stable Disposition: HOME Referrals: Randal Tilley MD [Primary Care Provider] - Alvaro Meza DPM [Doctor of Podiatric Medicine] - Additional Instructions: 1. start by using a razor to crap the layer of callus and then use the corn pad per the box instructions. 2. soak in warm water as needed. 3. FOllow up with podiatry if the area of pain persist. - Billing Disposition and Condition Condition: STABLE Disposition: Home
== END 2018-08-22 20:08 | disposition home or self-care (01) ==
LOC: UCCORT 19:37
DX: L84 Corns and callosities (principal); Z87.891 Personal history of nicotine dependence
CPT/HCPCS: 99211; G0463